=== PATIENT | female | born 1945 | race African-American/Black ===

== ENCOUNTER 2017-12-20 06:34 | Emergency (ER) | payer MEDICARE, BC ==
[~2017-12-20] VITALS: Ht 175.3 cm; Wt 95.7 kg
[2017-12-20 06:40] VITALS: BP 167/75
[2017-12-20 07:14] LABS: APPEARANCE,URINE CLEAR (CLEAR); BILIRUBIN,URINE NEGATIVE (NEGATIVE); BLOOD, URINE NEGATIVE Ery/uL (NEGATIVE); COLOR,URINE YELLOW (YELLOW); KETONES,URINE NEGATIVE (NEGATIVE); LEUKOCYTE ESTERASE ,URINE NEGATIVE (NEGATIVE); NITRITE, URINE NEGATIVE (NEGATIVE); PROTEIN,URINE NEGATIVE (NEGATIVE); UGLUCOSE NEGATIVE (NEGATIVE); UROBILINOGEN,URINE 0.2 EU/dL (0.2)
== END 2017-12-20 07:37 | disposition home or self-care (01) ==
LOC: ER 06:36
DX: R30.9 Painful micturition, unspecified (principal)
CPT/HCPCS: 81001; 99283; A4606; 81000-TC; Z7610